=== PATIENT | female | born 1990 | race Caucasian/White ===

== ENCOUNTER 2022-05-10 10:25 | Emergency (ER) | payer OTHER ==
[~2022-05-10] VITALS: Ht 157.5 cm; Wt 107.0 kg
[2022-05-10 10:49] VITALS: BP 140/69
--- NOTE | 2022-05-10 12:11 | NUR ---
PT AMB TO BED 3.
--- NOTE | 2022-05-10 12:32 | NUR ---
32/F PRESENTS TO ED WITH C/O LOWER ABDOMINAL CRAMPING AND VAGINAL BLEEDING X1 DAY. PATIENT REPORTS SHE IS 6 WEEKS , . PATIENT REPORTS LAST OB APPOINTMENT WAS YESTERDAY AND SHE RECEIVED A NORMAL ULTRASOUND. PATIENT DENIES RECENT SICK CONTACTS, FEVERS, CHILLS, URINARY SYMPTOMS, WEAKNESS.
[2022-05-10 12:46] LABS: BASOPHILS # (AUTO) 0.1 K/uL (0.00-0.22); BASOPHILS % (AUTO) 0.6 % (0.0-2.0); EOSINOPHILS # (AUTO) 0.1 K/uL (0-0.4); EOSINOPHILS % (AUTO) 0.6 % (0.0-4.0); HEMATOCRIT 33.7 % (36-48); HEMOGLOBIN 11.6 g/dL (12.0-16.0); LYMPHOCYTES # (AUTO) 2.3 K/uL (2.5-16.5); LYMPHOCYTES % (AUTO) 25.3 % (20.5-51.1); MEAN CORPUSCULAR HEMOGLOBIN 28 pg (27-31); MEAN CORPUSCULAR HGB CONC 35 g/dL (33-37); MEAN CORPUSCULAR VOLUME 80.8 fL (80-94); MONOCYTES # (AUTO) 0.6 K/uL (0.8-1.0); MONOCYTES % (AUTO) 6.8 % (1.7-9.3); NEUTROPHILS # (AUTO) 6.1 K/uL (1.8-7.7); NEUTROPHILS % (AUTO) 66.7 % (42.2-75.2); PLATELET COUNT (AUTO) 278 K/uL (140-450); RED BLOOD CELL COUNT(AUTO) 4.17 MIL/uL (4.20-5.40); RED CELL DISTRIBUTION WIDTH 15.1 % (11.6-13.7); WHITE BLOOD COUNT (AUTO) 9.2 K/uL (4.8-10.8)
--- NOTE | 2022-05-10 13:08 | NUR ---
32YR OLD FEMALE BIB SELF C/O VAG BLEED X1DAY. 6WKS PREG. SMALL AMOUNT OF BLEEDING. MOD DARK IN COLOR. NO CLOTS. ABD CRAMPING 5/10 PAIN. UNKNOWN LMP. PT IS A&OX4. NO DISTRESS NOTED. RESP EVEN AND UNLABORED. SKIN INTACT WARM AND DRY. PT IN GOWN . SIDE RAILS UP X1 BED IN LOWEST POSITION. NKDA NO HX
[2022-05-10 14:13] LABS: APPEARANCE,URINE CLEAR (CLEAR); BILIRUBIN,URINE NEGATIVE (NEGATIVE); BLOOD, URINE 3+ (NEGATIVE); COLOR,URINE YELLOW (YELLOW); LEUKOCYTE ESTERASE ,URINE NEGATIVE (NEGATIVE); NITRITE, URINE NEGATIVE (NEGATIVE); UGLUCOSE NEGATIVE (NEGATIVE)
[2022-05-10 14:32] LABS: RBC,URINE 20-50 /HPF (0-5); WBC,URINE 0-5 /HPF (0-5)
[2022-05-10 14:35] VITALS: BP 131/71
--- NOTE | 2022-05-10 14:35 | NUR ---
Patient discharged with v/s stable. Written and verbal after care instructions given and explained. Patient verbalized understanding. Ambulatory with steady gait. All questions addressed prior to discharge. Advised to follow up with PMD.
--- NOTE | 2022-05-10 14:36 | NUR ---
The patient's care was reviewed and supervised by Carmen Madden RN.
== END 2022-05-10 14:35 | disposition home or self-care (01) ==
LOC: MED 10:25
DX: O20.0 Threatened abortion (principal); D64.9 Anemia, unspecified; Z3A.01 Less than 8 weeks gestation of pregnancy; Z90.49 Acquired absence of other specified parts of digestive tract
CPT/HCPCS: 36415; 81001; 81025; 84702; 85025; 86900; 86901; 87086; 99284